=== PATIENT | male | born 1980 | race Caucasian/White ===

== ENCOUNTER → 2018-06-12 | Outpatient (CLI) | payer OTHER ==
--- NOTE | 2018-06-12 11:35 | KCIC ---
MRI Brain without contrast History: Chronic headache, confusion, memory loss, sleep apnea Technique: Multiplanar, multisequential noncontrast MR imaging was performed of the brain. Contrast: None Comparison: None Findings: There is no evidence of recent infarct or cytotoxic edema. The ventricles, sulci, and cisterns are within normal limits in size and configuration. There is no significant midline shift, intraaxial mass effect, or focal abnormal extra-axial fluid collection. There is no significant signal abnormality including hemosiderin deposition of the brain parenchyma. There is preservation of the major intracranial flow-voids at the skull base. The mastoid air cells are aerated. The cerebellar tonsils are normal in location. There is no significant abnormality of the pineal gland or pituitary gland. There is mild bilateral ethmoid air cell mucosal thickening. Mild heterogeneity of the marrow of the clivus may be due to residual red marrow. Impression: 1. There is no significant intracranial abnormality. Electronically signed by: Abram Lund MD (06/12/2018 11:31 AM) [id number]
== END | disposition home or self-care (01) ==
LOC: KCIC MRI 09:49
PROVIDERS: ATTEND Family Medicine
DX: J34.89 Other specified disorders of nose and nasal sinuses (principal); R41.0 Disorientation, unspecified; R51 Headache; G47.33 Obstructive sleep apnea (adult) (pediatric); R41.3 Other amnesia
CPT/HCPCS: 70551

== ENCOUNTER → 2021-10-27 | Outpatient (CLI) | payer OTHER ==
--- NOTE | 2021-10-27 13:44 | RAD ---
EXAM: ULTRASOUND ABDOMEN COMPLETE CLINICAL HISTORY: Reason: Flank Pain x 1 month / Spl. Instructions: / History: COMPARISON: None available. TECHNIQUE: Ultrasound of the upper abdomen was performed. FINDINGS: The liver length measures 18.1 cm. The visualized pancreas grossly appears unremarkable. Visualized a kumar, IVC within normal limits of dimension. The gallbladder is mildly distended. The gallbladder wal l thickness measures 9 mm. The right kidney measures 13.5 x 4.1 x 5.2 cm. The left kidney measures 12 .7 x 4.4 x 5.7 cm. The inferior portions the bilateral kidneys are difficult to visualize. The spleen measures 12.7 cm in length. IMPRESSION: 1. No evidence of gallstones. 2.The evaluation of the kidneys is somewhat limited due to bowel gas. Electronically signed by: Truong Pathak MD (10/27/2021 1:41 PM) [id number]
== END ==
LOC: US 12:45
PROVIDERS: ATTEND Family Medicine
DX: K82.8 Other specified diseases of gallbladder (principal); R10.9 Unspecified abdominal pain
CPT/HCPCS: 76700